=== PATIENT | female | born 2000 | race African-American/Black ===

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

== ENCOUNTER 2019-01-25 18:06 | Emergency (ER) | payer MEDICAID ==
[~2019-01-25] VITALS: Ht 157.5 cm; Wt 57.6 kg
[~2019-01-25 18:06] MED LIST changes: +TESSALON PERLE100 M2 ORAL
[2019-01-25] MEDS ORDERED: NKM (18:21)
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
[2019-01-25 18:28] VITALS: BP 109/62
[2019-01-25 19:00] VITALS: BP 110/67
--- NOTE | 2019-01-25 19:01 | NUR ---
HAND-OFF: Report given to SAMANTHA Shea. NAD noted.
--- NOTE | 2019-01-25 19:27 | NUR ---
ED Nurse Note: PT LEFT FOR CT
--- NOTE | 2019-01-25 19:33 | NUR ---
ED Nurse Note: PT RETURNED FROM CT
--- NOTE | 2019-01-25 19:56 | Diagnostic Imaging Report ---
EXAM: CT Head Without Intravenous Contrast CLINICAL HISTORY: TRAUMA TECHNIQUE: Axial computed tomography images of the head brain without intravenous contrast. CTDI is 70 mGy and DLP is 1274 mGy-cm. One or more of the following dose reduction techniques were used: automated exposure control, adjustment of the mA and or kV according to patient size, use of iterative reconstruction technique. COMPARISON: No relevant prior studies available. FINDINGS: Brain: Unremarkable. No hemorrhage. No significant white matter disease. No edema. Ventricles: Unremarkable. No ventriculomegaly. Bones joints: Unremarkable. No acute fracture. Soft tissues: Unremarkable. Sinuses: Unremarkable as visualized. No acute sinusitis. Mastoid air cells: Unremarkable as visualized. No mastoid effusion. IMPRESSION: Unremarkable study.
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
[2019-01-25] MEDS ORDERED: IBUPROFEN600 MG ORAL (20:06)
[2019-01-25 20:20] VITALS: BP 108/65
--- NOTE | 2019-01-25 20:20 | NUR ---
ER DISCHARGE NOTE: Patient is cleared to be discharged per ERMD, pt is aox4, on room air, with stable vital signs. pt was given dc and prescription instructions, pt was able to verbalize understanding, pt id band and iv site removed without complications. pt is able to ambulate with steady gait. pt took all belongings.
== END 2019-01-25 20:20 | disposition home or self-care (01) ==
LOC: EMR 18:46
DX: S00.93XA Contusion of unspecified part of head, initial encounter (principal); V43.62XA Car passenger injured in collision with other type car in traffic accident, initial encounter; Y92.410 Unspecified street and highway as the place of occurrence of the external cause
CPT/HCPCS: 70450; 80307; 81025; Z7502; 99284

== ENCOUNTER 2020-03-05 14:01 | Emergency (ER) | payer MEDICAID ==
[~2020-03-05] VITALS: Ht 157.5 cm; Wt 59.9 kg
[~2020-03-05 14:01] MED LIST changes: +IBUPROFEN600 MG ORAL; +NKM
[2020-03-05 14:14] VITALS: BP 131/80
--- NOTE | 2020-03-05 14:18 | Emergency Room Report ---
History of Present Illness General Chief Complaint: Sore Throat Source: Patient Present Illness HPI 19-year-old female with no symptom past medical history here complaining of 1 week of 7 out of 10 sore throat with congestion. Denies any fever and chills, loss of taste and smell, diarrhea, abdominal pain, nausea vomiting shortness of breath. 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 Does not know if she came in contact with any Covid positive patients. Vital signs are within normal limits. Denies and no other associated symptoms. Has not taken medication for symptom relief. Denies tobacco smoke, alcohol intake, or drug use Allergies: Coded Allergies: No Known Allergies (Unverified , 09/19/15) COVID-19 Screening Contact w/high risk pt: No Experienced COVID-19 symptoms?: No COVID-19 Testing performed BRICK EXTRUDER OPERATOR: No Patient History Past Medical History: see triage record Past Surgical History: none Pertinent Family History: none Now: No Immunizations: UTD Reviewed Nursing Documentation: PMH: Agreed; PSxH: Agreed Nursing Documentation-PMH Past Medical History: No Stated History Review of Systems All Other Systems: negative except mentioned in HPI Physical Exam Vital Signs Date Time Temp Pulse Resp B/P (MAP) Pulse Ox O2 Delivery O2 Flow Rate FiO2 03/05/20 14:04 98.6 103 17 131/80 (97) 99 Room Air Sp02 EP Interpretation: reviewed, normal General Appearance: no apparent distress, alert, GCS 15, non-toxic Head: normocephalic, atraumatic Eyes: bilateral eye normal inspection, bilateral eye PERRL ENT: tonsillar swelling, pharyngeal erythema Neck: full range of motion, supple/symm/no masses Respiratory: chest non-tender, lungs clear, normal breath sounds, speaking full sentences Cardiovascular #1: regular rate, rhythm, no edema Gastrointestinal: normal bowel sounds, non tender, soft, non-distended, no guarding, no rebound Rectal: deferred Genitourinary: no CVA tenderness Musculoskeletal: back normal Neurologic: alert, motor strength/tone normal, oriented x3, sensory intact, responsive, speech normal Psychiatric: judgement/insight normal, memory normal, mood/affect normal, no suicidal/homicidal ideation Skin: no rash Lymphatic: no adenopathy Medical Decision Making PA Attestation ALL Diagnosis and treatment plan reviewed and discussed with my supervising physician Dr. Church Diagnostic Impression: Primary Impression: URI (upper respiratory infection) ER Course 19-year-old female with no symptom past medical history here complaining of 1 week of 7 out of 10 sore throat with congestion. Denies any fever and chills, loss of taste and smell, diarrhea, abdominal pain, nausea vomiting shortness of breath. 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 Does not know if she came in contact with any Covid positive patients. Vital signs are within normal limits. Denies and no other associated symptoms. Has not taken medication for symptom relief. Denies tobacco smoke, alcohol intake, or drug use Ddx considered but are not limited to: strep pharyngitis, URI, tonsillitis, peritonsillar abscess, influneza, coronavirus Vital signs: are WNL, pt. is afebrile H&PE are most consistent with: URI ORDERS: Azithromycin, prednisone ED INTERVENTIONS: None required at this time. DISCHARGE: At this time pt. is stable for d/c to home. Will provide printed patient care instructions, and any necessary prescriptions. Care plan and follow up instructions have been discussed with the patient prior to discharge. Advised patient to get tested for Covid, take medication as directed, follow primary care provider, if worsening symptoms return to the emergency Last Vital Signs Date Time Temp Pulse Resp B/P (MAP) Pulse Ox O2 Delivery O2 Flow Rate FiO2 03/05/20 14:14 98.6 17 131/80 99 Room Air 03/05/20 14:04 103 Disposition: HOME, SELF-CARE Condition: Stable Scripts Prednisone* (PREDNISONE*) 20 Mg Tablet 40 MG ORAL DAILY for 5 Days, #10 TAB Prov: Melissa Garza 03/05/20 Azithromycin* (ZITHROMAX*) 250 Mg Tablet 250 MG ORAL DAILY, #6 TAB 0 Refills Take two tables once daily for 1 day, then one tablet once daily for 4 days. Prov: Melissa Garza 03/05/20 Patient Instructions: Upper Respiratory Infection, Adult, [id number] Additional Instructions: Take medication as directed, follow-up with your primary care provider, if worsening symptoms return to the emergency room. I recommend you get tested for Covid Melissa Garza Mar 05, 2020 14:18
[2020-03-05] MEDS ORDERED: ZITHROMAX250 MG ORAL (14:19)
[2020-03-05] MEDS ORDERED: PREDNISONE20 MG ORAL (14:19)
[2020-03-05 14:25] VITALS: BP 131/80
== END 2020-03-05 14:25 | disposition home or self-care (01) ==
LOC: EMR 14:25
DX: J06.9 Acute upper respiratory infection, unspecified (principal)
CPT/HCPCS: 99282